=== PATIENT | male | born 1950 | race Caucasian/White ===

== ENCOUNTER 2021-12-07 12:41 | Observation (INO) ==
[2021-12-07 13:38] LABS: Basophils # (auto) 0.02 K/uL (0-0.2); Basophils % (auto) 0.2 %; Eosinophils # (auto) 0.08 K/uL (0-0.50); Eosinophils % (auto) 0.9 %; Hematocrit (blood only) 45.6 % (40.1-51.0); Immature Granulocytes # (auto) 0.05 K/uL (0.00-0.02); Immature Granulocytes % (auto) 0.6 %; Lymphocytes # (auto) 1.16 K/uL (1.2-3.4); Lymphocytes % (auto) 13.6 %; Mean Corpuscular Hemoglobin 30.8 pg (25.0-34.0); Mean Corpuscular Hgb Conc 35.1 g/dL (32.0-36.0); Mean Corpuscular Volume 87.7 fL (80.0-100.0); Mean Platelet Volume 9.7 fL (9.4-12.4); Monocytes # (auto) 0.37 K/uL (0.24-0.82); Monocytes % (auto) 4.3 %; Neutrophils # (auto) 6.83 K/uL (1.4-6.5); Neutrophils % (auto) 80.4 %; Platelet Count 223 K/uL (130-400); RDW Standard Deviation 45.1 fL (36.4-46.3); White Blood Count 8.51 K/ul (4.8-10.8)
[2021-12-07 14:10] LABS: Alanine Aminotransferase 61 U/L (7-52); Albumin Globulin Ratio 1.7 (0.9-2); Albumin Level 4.5 gm/dl (3.4-5.0); Alkaline Phosphatase 76 U/L (34-104); Anion Gap 7 (3-11); Aspartate Aminotransferase 51 U/L (13-39); BUN Creatinine Ratio 20.4 (10-20); Bilirubin,Total 0.6 mg/dl (0.2-1.0); Blood Urea Nitrogen 23 mg/dl (6-23); Calcium 9.5 mg/dl (8.5-10.1); Carbon Dioxide 25 mmol/L (21-32); Chloride 107 mmol/L (98-107); Est GFR (African American) 74.3 ml/min; Est GFR (Non-African American) 64.1 ml/min; Globulin 2.7 gm/dl (2.5-4.0); Glucose 121 mg/dl (70-99(Fasting)); Potassium 4.1 mmol/L (3.5-5.1); Sodium 139 mmol/L (136-145); Total Protein 7.2 gm/dl (6.0-8.3)
[2021-12-07 14:11] LABS: Troponin I High Sensitivity 38.2 pg/ml (0-20)
--- NOTE | 2021-12-07 14:57 | Electrocardiogram Report ---
Test Reason : Blood Pressure : / mmHG Vent. Rate : 053 BPM Atrial Rate : 053 BPM P-R Int : 150 ms QRS Dur : 086 ms QT Int : 430 ms P-R-T Axes : 042 -07 018 degrees QTc Int : 403 ms Poor data quality, interpretation may be adversely affected Sinus bradycardia with occasional Premature ventricular complexes Possible Old Septal infarct Abnormal ECG No previous ECGs available Confirmed by Edgar Keita ([id number]) on 12/07/2021 2:56:49 PM Referred By: Confirmed By:Edgar Keita
[2021-12-07] MEDS ORDERED: LORazepam 2 MG/2 ML SYR IV STA (15:39)
[2021-12-07] MEDS ORDERED: SODIUM CHLORIDE 0.9% 1000ML 500 ML IV ONE (15:40)
--- NOTE | 2021-12-07 15:45 | Emergency Department Note ---
Impression & Plan Elevated troponin ADMIT ED Provider Note HPI: The patient is a 71-year-old gentleman with history of anxiety, presents the emergency department with a chief complaint of acute onset headache, epigastric pain, and hypertension. Patient states that he was driving home from a meeting earlier today when he had an acute onset posterior headache, states it was relatively severe at the time, states he also had an acute episode of epigastric pain that was relatively sharp in nature. Patient states that the symptoms did gradually subside. He went to an urgent care for the symptoms initially and was noted to have an elevated blood pressure and was sent to the emergency room via EMS for further assessment. On arrival here to the ED the patient's blood pressure is 129/64, heart rate is in the 50s, patient is alert and saturating well on room air. Patient states that his symptoms are largely improved on my initial assessment, he arrives without focal deficits, denies any chest pain, denies any current abdominal pain ROS: -Neuro: Acute onset headache -GI: Transient abdominal discomfort *10 point review systems was conducted and is otherwise negative unless stated above *Outpatient medications and allergy history reviewed PE: General: Alert HEENT: Normocephalic, trachea midline Eyes: Extraocular eye movement is intact, no scleral erythema Pulmonary: Clear to auscultation bilaterally, no wheezing Cardio: Regular rate and rhythm GI: Abdomen is soft, nontender : No suprapubic tenderness MSK: No evidence of trauma or malformation of the extremities, no edema Skin: No evidence of rash Neuro: Alert, no focal deficits, equal bilateral director of labor and delivery strength, no drift of the upper extremities or lower extremities with testing against gravity, there is no ataxia on [id number] testing bilaterally, symmetrical facial movements are appreciated Psychiatric: Cooperative front desk monitor: - An order was placed for continuous cardiac monitoring - Patient was noted to be in sinus rhythm with a rate of 80 EKG: Rate: 53 Rhythm: Sinus bradycardia with occasional PVCs Intervals: Within normal limits ST changes: No ST elevation Time: 1315 EKG #2: Rate: 52 Rhythm: Sinus bradycardia Intervals: Within normal limits ST changes: No ST elevation Time: 1309 Interventions provided in ED: -IV Ativan Medical Decision Making: Patient presented to the emergency department after an acute onset headache with an episode of hypertension that was noted at the urgent care facility, states he also had an acute episode of epigastric pain but on arrival here to the ED his blood pressure is under better control at 126 systolic and he states that his symptoms are improved. Given the history, I did discuss with the patient CT imaging as well as review of lab work. CT imaging of the head with angiography was obtained given the acuity of the patient's headache, this was within a 6-hour window and does not show any evidence of subarachnoid hemorrhage or acute intracranial abnormalities. Patient denies any recent fevers, this was a transient headache and was acute in onset, low suspicion for meningitis or infectious etiology. CT angiography of the chest was obtained that shows no evidence of pulmonary embolism, CT imaging of the abdomen and pelvis does not show any evidence of acute surgical pathology as the potential source for his acute epigastric pain. EKG was obtained shortly after arrival and does not show any acute ischemic changes. Patient's high-sensitivity troponin level was mildly elevated at 38.2. He currently denies any chest pain. Patient was given a dose of IV Ativan shortly after arrival as he stated he was feeling very anxious, on my reassessment his blood pressure has up trended somewhat but not within critical limits. Repeat troponin was obtained and is significantly more elevated now at 120, patient continues to deny any symptoms but given his hypertension reported earlier today with his acute episode of epigastric pain I do feel that he needs to be admitted. Patient was initially hesitant at this idea however he was eventually in agreement. He does not believe he has had any recent stress testing. He is currently asymptomatic from the standpoint of having any chest pain, I discussed the above findings with the admitting hospitalist for [facility], Dr. Restrepo, who was in agreement to admit the patient to a telemetry bed for further management and cardiology consultation. We will hold on heparin drip at this time given that the patient is not symptomatic. Patient and his at the bedside are in agreement to the above plan the patient was admitted in stable condition for further care. Of note, aspirin was withheld secondary to allergy. Diagnosis: 1. Elevated troponin 2. Acute onset headache, not intractable 3. Acute epigastric pain, transient 4. Hypertension 5. Anxiety, acute Disposition: Admission Ishaan Wilkes DO Emergency Medicine Past Med/Surg History Medical History Asthma Atherosclerosis of aortic arch Gallstones GI bleed due to NSAIDs History of tobacco use Surgical History H/O resection of small bowel S/P rotator cuff repair Family History Other Heart disease Hypertension Social History Smoking Status: Former smoker Tobacco Type: Cigarettes Cigarettes Per Day: H/o 1.5 ppd for 22 years; Second Hand Exposure: No; Do You Dip or Chew Tobacco: No; Tobacco Cessation Education Requested by Patient: No Hx Alcohol Use: Yes Alcohol type: wine Hx Substance Use: Yes Prescribed Medications: Marijuana Last Used Substance: Days (ago) Substance Use Type Other:: with prescription Preferred Language: Kosovan Communication Ability: Effective Caustic Operator Required: No Beliefs That Will Affect Care: None Current Living Situation: Spouse Other Information That Helps Us Care for You: No Feels Safe at Home: Yes Safety Concerns: Feels Safe At This Time Assistive Devices: Hearing Aid - Left and Hearing Aid - Right Allergies Allergies Allergy/AdvReac Type Severity Reaction Status Date / Time pollen extracts Allergy Intermediate ITCHY Verified 12/07/21 17:04 EYES, SNEEZING NSAIDS (Non-Steroidal AdvReac Severe BLEEDING Verified 12/07/21 17:04 Anti-Inflamma COLITIS Home Meds Home Medications Medication Instructions Recorded Confirmed Medical Marijuana 1 dose inhalation DAILY 12/07/21 12/07/21 albuterol sulfate 2.5 mg/3 mL 2.5 mg inhalation Q4H PRN Wheezing 12/07/21 12/07/21 (0.083 %) solution for nebulization albuterol sulfate 90 mcg/actuation 2 puff inhalation BID 12/07/21 12/07/21 aerosol inhaler alprazolam 0.5 mg tablet (Xanax) 0.5 mg PO DAILY PRN Anxiety 12/07/21 12/07/21 biotin 5 mg tablet 5 mg PO DAILY 12/07/21 12/07/21 budesonide-formoterol HFA 160 2 puff inhalation BID 12/07/21 12/07/21 mcg-4.5 mcg/actuation aerosol inhaler (Symbicort) lycopene 10 mg capsule 10 mg PO DAILY 12/07/21 12/07/21 lysine 1,000 mg tablet 1,000 mg PO DAILY 12/07/21 12/07/21 benji extract 500 mg capsule 500 mg PO DIRECTED 12/07/21 12/07/21 nitroglycerin 0.4 mg sublingual 0.4 mg sublingual DIRECTED PRN 12/07/21 12/07/21 tablet (Nitrostat) Chest Pain prasterone (dhea) 50 mg capsule 50 mg PO DAILY 12/07/21 12/07/21 (DHEA) prednisone 20 mg tablet 20 mg PO DAILY PRN RESCUE KIT 12/07/21 12/07/21 simvastatin 10 mg tablet 10 mg PO HS 12/07/21 12/07/21 sodium chloride 0.65 % nasal spray 2 spray intranasal QID PRN NASAL 12/07/21 12/07/21 aerosol (Saline Nasal) DRYNESS yohimbe bark 500 mg capsule 0 mg PO DIRECTED 12/07/21 12/07/21 zolpidem 10 mg tablet (Ambien) 10 mg PO HS PRN Sleep 12/07/21 12/07/21 Results & Data (ED) Vital Signs Vital Signs - 24 hr 12/07/21 12:51 12/07/21 19:20 12/07/21 19:05 Temperature 36.8 C Temperature Source Temporal Artery Scan Pulse Rate 58 L Pulse Rate [Apical] 52 L Pulse Rate from SpO2 Sensor Respiratory Rate 16 12 Respiratory Effort / Characteristics Non-Labored Spontaneous Respiratory Depth Normal Blood Pressure 129/64 152/94 H Blood Pressure [Right Arm] 152/94 H Blood Pressure Mean 85 113 Blood Pressure Mean [Right Arm] 113 Blood Pressure Position Sitting Pulse Oximetry 97 98 Oxygen Delivery Method Room Air Sepsis Recent Fever Within 48 Hours No Sepsis New/Unexplained Change in Mental Status No Sepsis Action Taken by Nursing No Action Required 12/07/21 19:05 12/07/21 19:10 12/07/21 19:20 Temperature Temperature Source Pulse Rate 48 L 54 L 49 L Pulse Rate [Apical] Pulse Rate from SpO2 Sensor 49 L 54 L 50 L Respiratory Rate 13 18 16 Respiratory Effort / Characteristics Respiratory Depth Blood Pressure Blood Pressure [Right Arm] Blood Pressure Mean Blood Pressure Mean [Right Arm] Blood Pressure Position Pulse Oximetry 98 98 97 Oxygen Delivery Method Sepsis Recent Fever Within 48 Hours Sepsis New/Unexplained Change in Mental Status Sepsis Action Taken by Nursing 12/07/21 19:30 12/07/21 19:30 12/07/21 19:40 Temperature Temperature Source Pulse Rate 51 L 50 L Pulse Rate [Apical] Pulse Rate from SpO2 Sensor 51 L 51 L Respiratory Rate 12 19 Respiratory Effort / Characteristics Respiratory Depth Blood Pressure 162/95 H Blood Pressure [Right Arm] Blood Pressure Mean 117 Blood Pressure Mean [Right Arm] Blood Pressure Position Pulse Oximetry 98 96 Oxygen Delivery Method Sepsis Recent Fever Within 48 Hours Sepsis New/Unexplained Change in Mental Status Sepsis Action Taken by Nursing 12/07/21 19:50 12/07/21 20:00 12/07/21 20:00 Temperature Temperature Source Pulse Rate 50 L 48 L Pulse Rate [Apical] Pulse Rate from SpO2 Sensor 51 L 49 L Respiratory Rate 19 15 Respiratory Effort / Characteristics Respiratory Depth Blood Pressure 176/94 H Blood Pressure [Right Arm] Blood Pressure Mean 121 Blood Pressure Mean [Right Arm] Blood Pressure Position Pulse Oximetry 95 97 Oxygen Delivery Method Sepsis Recent Fever Within 48 Hours Sepsis New/Unexplained Change in Mental Status Sepsis Action Taken by Nursing 12/07/21 20:10 12/07/21 20:30 12/07/21 20:30 Temperature Temperature Source Pulse Rate 55 L 51 L Pulse Rate [Apical] Pulse Rate from SpO2 Sensor 54 L 50 L Respiratory Rate 14 11 L Respiratory Effort / Characteristics Respiratory Depth Blood Pressure 168/94 H Blood Pressure [Right Arm] Blood Pressure Mean 118 Blood Pressure Mean [Right Arm] Blood Pressure Position Pulse Oximetry 96 98 Oxygen Delivery Method Sepsis Recent Fever Within 48 Hours Sepsis New/Unexplained Change in Mental Status Sepsis Action Taken by Nursing Laboratory Data Result diagrams: 12/07/21 13:30 12/07/21 13:30 Lab Results 12/07/21 12/07/21 12/07/21 Range/Units 13:30 13:30 13:30 WBC 8.51 (4.8-10.8) K/ul RBC 5.20 (4.63-6.08) M/uL Hgb 16.0 (14.0-18.0) g/dl Hct 45.6 (40.1-51.0) % MCV 87.7 (80.0-100.0) fL MCH 30.8 (25.0-34.0) pg MCHC 35.1 (32.0-36.0) g/dL RDW Std Deviation 45.1 (36.4-46.3) fL RDW Coeff of Celena 14.0 (11.5-14.5) % Plt Count 223 (130-400) K/uL MPV 9.7 (9.4-12.4) fL Immature Gran % (Auto) 0.6 % Neut % (Auto) 80.4 % Lymph % (Auto) 13.6 % Swift % (Auto) 4.3 % Eos % (Auto) 0.9 % Baso % (Auto) 0.2 % Neut # (Auto) 6.83 H (1.4-6.5) K/uL Lymph # (Auto) 1.16 L (1.2-3.4) K/uL Swift # (Auto) 0.37 (0.24-0.82) K/uL Eos # (Auto) 0.08 (0-0.50) K/uL Baso # (Auto) 0.02 (0-0.2) K/uL Immature Gran # (Auto) 0.05 H (0.00-0.02) K/uL PT Cancelled INR Cancelled APTT Cancelled PTT Ratio Cancelled Sodium 139 (136-145) mmol/L Potassium 4.1 (3.5-5.1) mmol/L Chloride 107 (98-107) mmol/L Carbon Dioxide 25 (21-32) mmol/L Anion Gap 7 (3-11) BUN 23 (6-23) mg/dl Creatinine 1.13 (0.6-1.4) mg/dl Est Cr Clr Drug Dosing Not Reportable Est GFR ( Amer) 74.3 ml/min Est GFR (Non-Af Amer) 64.1 ml/min BUN/Creatinine Ratio 20.4 H (10-20) Glucose 121 H (70-99(Fasting)) mg/dl Calcium 9.5 (8.5-10.1) mg/dl Total Bilirubin 0.6 (0.2-1.0) mg/dl AST 51 H (13-39) U/L ALT 61 H (7-52) U/L Alkaline Phosphatase 76 (34-104) U/L Troponin I High Sens 38.2 H (0-20) pg/ml Total Protein 7.2 (6.0-8.3) gm/dl Albumin 4.5 (3.4-5.0) gm/dl Globulin 2.7 (2.5-4.0) gm/dl Albumin/Globulin Ratio 1.7 (0.9-2) Lipase (11-82) U/L SARS-CoV-2, RNA, NAAT (NEGATIVE) 12/07/21 12/07/21 12/07/21 Range/Units 15:44 17:35 17:35 WBC (4.8-10.8) K/ul RBC (4.63-6.08) M/uL Hgb (14.0-18.0) g/dl Hct (40.1-51.0) % MCV (80.0-100.0) fL MCH (25.0-34.0) pg MCHC (32.0-36.0) g/dL RDW Std Deviation (36.4-46.3) fL RDW Coeff of Celena (11.5-14.5) % Plt Count (130-400) K/uL MPV (9.4-12.4) fL Immature Gran % (Auto) % Neut % (Auto) % Lymph % (Auto) % Swift % (Auto) % Eos % (Auto) % Baso % (Auto) % Neut # (Auto) (1.4-6.5) K/uL Lymph # (Auto) (1.2-3.4) K/uL Swift # (Auto) (0.24-0.82) K/uL Eos # (Auto) (0-0.50) K/uL Baso # (Auto) (0-0.2) K/uL Immature Gran # (Auto) (0.00-0.02) K/uL PT 11.3 INR 1.1 APTT 25.5 PTT Ratio 0.9 Sodium (136-145) mmol/L Potassium (3.5-5.1) mmol/L Chloride (98-107) mmol/L Carbon Dioxide (21-32) mmol/L Anion Gap (3-11) BUN (6-23) mg/dl Creatinine (0.6-1.4) mg/dl Est Cr Clr Drug Dosing Est GFR ( Amer) ml/min Est GFR (Non-Af Amer) ml/min BUN/Creatinine Ratio (10-20) Glucose (70-99(Fasting)) mg/dl Calcium (8.5-10.1) mg/dl Total Bilirubin (0.2-1.0) mg/dl AST (13-39) U/L ALT (7-52) U/L Alkaline Phosphatase (34-104) U/L Troponin I High Sens 120.7 H* D (0-20) pg/ml Total Protein (6.0-8.3) gm/dl Albumin (3.4-5.0) gm/dl Globulin (2.5-4.0) gm/dl Albumin/Globulin Ratio (0.9-2) Lipase 56 (11-82) U/L SARS-CoV-2, RNA, NAAT (NEGATIVE) 12/07/21 Range/Units 19:24 WBC (4.8-10.8) K/ul RBC (4.63-6.08) M/uL Hgb (14.0-18.0) g/dl Hct (40.1-51.0) % MCV (80.0-100.0) fL MCH (25.0-34.0) pg MCHC (32.0-36.0) g/dL RDW Std Deviation (36.4-46.3) fL RDW Coeff of Celena (11.5-14.5) % Plt Count (130-400) K/uL MPV (9.4-12.4) fL Immature Gran % (Auto) % Neut % (Auto) % Lymph % (Auto) % Swift % (Auto) % Eos % (Auto) % Baso % (Auto) % Neut # (Auto) (1.4-6.5) K/uL Lymph # (Auto) (1.2-3.4) K/uL Swift # (Auto) (0.24-0.82) K/uL Eos # (Auto) (0-0.50) K/uL Baso # (Auto) (0-0.2) K/uL Immature Gran # (Auto) (0.00-0.02) K/uL PT INR APTT PTT Ratio Sodium (136-145) mmol/L Potassium (3.5-5.1) mmol/L Chloride (98-107) mmol/L Carbon Dioxide (21-32) mmol/L Anion Gap (3-11) BUN (6-23) mg/dl Creatinine (0.6-1.4) mg/dl Est Cr Clr Drug Dosing Est GFR ( Amer) ml/min Est GFR (Non-Af Amer) ml/min BUN/Creatinine Ratio (10-20) Glucose (70-99(Fasting)) mg/dl Calcium (8.5-10.1) mg/dl Total Bilirubin (0.2-1.0) mg/dl AST (13-39) U/L ALT (7-52) U/L Alkaline Phosphatase (34-104) U/L Troponin I High Sens (0-20) pg/ml Total Protein (6.0-8.3) gm/dl Albumin (3.4-5.0) gm/dl Globulin (2.5-4.0) gm/dl Albumin/Globulin Ratio (0.9-2) Lipase (11-82) U/L SARS-CoV-2, RNA, NAAT NEGATIVE (NEGATIVE) Administered Medications Alprazolam (Alprazolam 0.5 Mg Tablet) 0.5 mg PO DAILY PRN PRN Reason: Anxiety Stop: 01/06/22 21:25 Last Admin: 12/07/21 22:47 Dose: 0.5 mg Documented By: PK Heparin Sodium (Porcine) (Heparin Sod 5,000 Unit/0.5 Ml Vial) 5,000 units SQ Q8 MARCIAL Stop: 01/06/22 21:59 Last Admin: 12/07/21 22:40 Dose: 5,000 units Documented By: PK Simvastatin (Simvastatin 10 Mg Tab) 10 mg PO HS MARCIAL Stop: 01/06/22 21:25 Last Admin: 12/07/21 22:40 Dose: 10 mg Documented By: PK Zolpidem Tartrate (Zolpidem Tartrate 10 Mg Tab) 10 mg PO HS PRN PRN Reason: Sleep Stop: 01/06/22 21:25 Last Admin: 12/07/21 22:47 Dose: 10 mg Documented By: PK Discontinued Medications Sodium Chloride (Nss 1000ml) 500 mls @ 999 mls/hr IV .Q31M ONE Stop: 12/07/21 16:10 Last Infusion: 12/07/21 17:44 Dose: 0 mls/hr Documented By: Admin: 12/07/21 16:29 Dose: 999 mls/hr Documented By: AM Ioversol (Optiray 320 500ml) 100 ml IV ONCE ONE Stop: 12/07/21 16:26 Last Admin: 12/07/21 16:26 Dose: 100 ml Documented By: KSF Lorazepam (Lorazepam 2 Mg/2 Ml Syr) 1 mg IV NOW STA; Protocol Stop: 12/07/21 15:40 Last Admin: 12/07/21 17:23 Dose: Not Given Documented By: AM Imaging Data Radiologist's Impression: Head CTA 12/07/21 15:39 CT ANGIOGRAM OF THE BRAIN COMBO CLINICAL HISTORY: Headache. COMPARISON STUDY: No priors. TECHNIQUE: Unenhanced axial CT scan of the brain is performed. Subsequently, following the IV administration of 100 cc of Optiray 320, CT angiogram of the brain was performed from the skull base to the vertex. Images are reviewed in the axial, sagittal, and coronal planes. 3-D MIPS images are created and assessed. IV contrast was administered without complication. A dose lowering technique was utilized adhering to the principles of ALARA. FINDINGS: Brain parenchyma: There is age-related involutional change noting minimal microangiopathic disease. There is no hemorrhage, mass effect, or evidence of acute territorial ischemia by CT criteria. There is no evidence of enhancing mass lesion on the angiogram phase images. No extra-axial fluid collection is seen. Espino-white matter differentiation is preserved. Ventricles, sulci, and cisterns: Prominent secondary to involutional change. CT angiogram of the brain: There is mild atherosclerotic calcification of the cavernous carotid arteries. The internal carotid arteries are widely patent, as are the anterior and middle cerebral arteries. The vertebrobasilar system and posterior cerebral arteries are widely patent. The vertebral arteries are codominant. There is no aneurysm, high-grade stenosis, or focal vessel cutoff identified throughout the intracranial circulation. Dural sinuses: Clear as visualized. Orbits: The bony orbits are intact. The orbital contents are normal as visualized noting bilateral ocular lens implants. Sinuses and mastoids: The visualized paranasal sinuses are clear. The mastoid air cells are well pneumatized. Calvarium: Unremarkable. IMPRESSION: 1. There is no hemorrhage, mass effect, or evidence of acute territorial ischemia by CT criteria. 2. Unremarkable CT angiogram of the brain. ACT 112: Negative or not required by law. Electronically signed by: Efe Haji M.D. 12/07/2021 4:38 PM Abdomen/Pelvis CT 12/07/21 15:40 CT SCAN OF THE ABDOMEN AND PELVIS WITH IV CONTRAST CLINICAL HISTORY: Acute onset abdominal pain. COMPARISON STUDY: No priors. TECHNIQUE: Following the IV administration of 100 cc of Optiray 320, CT scan of the abdomen and pelvis is performed from the lung bases to the proximal femora. Images are reviewed in the axial, sagittal, and coronal planes. IV contrast was administered without complication. A dose lowering technique was utilized adhering to the principles of ALARA. CT DOSE: 2337.85 mGy.cm FINDINGS: Lung bases: The heart is normal in size and without pericardial effusion. The l john bases are clear noting dependent scarring/atelectasis. A small hiatal hernia is noted. Liver: The contrast-enhanced liver is normal in size, contour, and attenuation. There is no intrahepatic biliary ductal dilatation. The hepatic veins and portal veins are patent. Gallbladder: There are calcified gallstones with no CT evidence of acute antonio cystitis. Spleen: Normal in size and attenuation. Pancreas: Unremarkable. Adrenal glands: Unremarkable. Kidneys: The contrast enhanced kidneys demonstrate mild cortical atrophy and are without hydronephrosis. The kidneys enhance symmetrically. A 2 cm cyst is seen on the right. Additional subcentimeter cortical hypodensities also likely represent cysts but are too small for definitive characterization. Abdominal vasculature: The abdominal aorta is normal in course and caliber noting mild atherosclerotic calcification. Bowel: There is postoperative change from rectosigmoid resection with colocolic anastomosis. No bowel obstruction is seen. There is moderate diverticulosis of the remaining colon without CT evidence of acute diverticulitis. There is mild colonic fecal retention. The appendix is well-visualized and normal. Peritoneum: There is no intraperitoneal free air or abdominal ascites. Lymphadenopathy: None. Pelvic viscera: The bladder is decompressed and appears markedly thick walled with mucosal hyperemia. There is surrounding infiltration. There is a tiny calcification within the bladder lumen or bladder wall seen on image #[id number]. The prostate gland is diminutive and heterogeneous. There are bilateral fat- containing inguinal hernias. Skeletal structures: The skeletal structures are osteopenic. There is lumbosacral spondylosis with evidence of L4-L5 spinal fusion. No lytic or blastic lesions are seen. IMPRESSION: 1. Question cystitis. Correlate with clinical findings and urinalysis. 2. Cholelithiasis without CT evidence of acute cholecystitis. 3. Colonic diverticulosis without CT evidence of acute diverticulitis. 4. Additional findings as above. ACT 112: Negative or not required by law. Electronically signed by: Efe Haji M.D. 12/07/2021 4:45 PM Chest CTA 12/07/21 15:40 CHEST CTA for PULMONARY ARTERIES CT DOSE: HISTORY: Upper chest pain. Assess for pulmonary embolus. TECHNIQUE: Multiaxial CT images of the chest were performed following the intravenous administration of contrast to evaluate the pulmonary arteries. Maximal intensity projection images were also obtained. A dose lowering technique was utilized adhering to the principles of ALARA. COMPARISON STUDY: None. FINDINGS: Normal caliber thoracic aorta with no evidence for a dissection. The heart is normal in size. No pleural or pericardial effusions. Mild circumferential thickening of the distal esophagus. Retrograde opacification of the hepatic veins. Cholelithiasis is noted. This is better appreciated on the same day abdomen and pelvis CT. No mediastinal or hilar lymphadenopathy. The thyroid gland enhances normally. No filling defects within the pulmonary arteries to suggest a pulmonary embolus. No fractures within the visualized osseous structures. No pneumothorax. The central airways are patent. Small groundglass densities within the lower lobes posteriorly favor mild dependent change. There is also mild interstitial thickening within the lungs which is likely chronic. No evidence for pulmonary edema. No focal lung consolidations to suggest pneumonia. Mild central bronchial wall thickening. IMPRESSION: 1. No evidence for a pulmonary embolus. 2. Mild chronic interstitial thickening mild central bronchial wall thickening. No focal lung consolidations to suggest a pneumonia. . 3. Cholelithiasis. ACT 112: Negative or not required by law. Electronically signed by: Barry Garza M.D. 12/07/2021 4:45 PM Discharge Plan Visit Data Chief Complaint: Hypertension ED Provider: Ishaan Wilkes Discharge Problem: Elevated troponin Patient Disposition: Admitted As Inpatient Discharge Instructions Interventions: ED Discharge Assessment Last Done: 12/07/21 21:02
[2021-12-07 16:07] LABS: INR 1.1 (0.9-1.1); Partial Thromboplastin Ratio 0.9; Partial Thromboplastin Time 25.5 Seconds (21.0-31.0); Prothrombin Time 11.3 Seconds (9.0-12.0)
[2021-12-07] MEDS ORDERED: OPTIRAY 320 500ml IV ONE (16:25)
--- NOTE | 2021-12-07 16:39 | CT Scan Report ---
CT ANGIOGRAM OF THE BRAIN COMBO CLINICAL HISTORY: Headache. COMPARISON STUDY: No priors. TECHNIQUE: Unenhanced axial CT scan of the brain is performed. Subsequently, following the IV adminis tration of 100 cc of Optiray 320, CT angiogram of the brain was performed from the skull base to the vertex. Images are reviewed in the axial, sagittal, and coronal planes. 3-D MIPS images are created a nd assessed. IV contrast was administered without complication. A dose lowering technique was utiliz ed adhering to the principles of ALARA. FINDINGS: Brain parenchyma: There is age-related involutional change noting minimal microangiopathic disease. T here is no hemorrhage, mass effect, or evidence of acute territorial ischemia by CT criteria. There i s no evidence of enhancing mass lesion on the angiogram phase images. No extra-axial fluid collection is seen. Espino-white matter differentiation is preserved. Ventricles, sulci, and cisterns: Prominent secondary to involutional change. CT angiogram of the brain: There is mild atherosclerotic calcification of the cavernous carotid arter ies. The internal carotid arteries are widely patent, as are the anterior and middle cerebral arterie s. The vertebrobasilar system and posterior cerebral arteries are widely patent. The vertebral arteri es are codominant. There is no aneurysm, high-grade stenosis, or focal vessel cutoff identified throu ghout the intracranial circulation. Dural sinuses: Clear as visualized. Orbits: The bony orbits are intact. The orbital contents are normal as visualized noting bilateral oc ular lens implants. Sinuses and mastoids: The visualized paranasal sinuses are clear. The mastoid air cells are well pneu matized. Calvarium: Unremarkable. IMPRESSION: 1. There is no hemorrhage, mass effect, or evidence of acute territorial ischemia by CT criteria. 2. Unremarkable CT angiogram of the brain. ACT 112: Negative or not required by law. Electronically signed by: Efe Haji M.D. 12/07/2021 4:38 PM
--- NOTE | 2021-12-07 16:46 | CT Scan Report ---
CT SCAN OF THE ABDOMEN AND PELVIS WITH IV CONTRAST CLINICAL HISTORY: Acute onset abdominal pain. COMPARISON STUDY: No priors. TECHNIQUE: Following the IV administration of 100 cc of Optiray 320, CT scan of the abdomen and pelv is is performed from the lung bases to the proximal femora. Images are reviewed in the axial, sagitta l, and coronal planes. IV contrast was administered without complication. A dose lowering technique w as utilized adhering to the principles of ALARA. CT DOSE: 2337.85 mGy.cm FINDINGS: Lung bases: The heart is normal in size and without pericardial effusion. The lung bases are clear no ting dependent scarring/atelectasis. A small hiatal hernia is noted. Liver: The contrast-enhanced liver is normal in size, contour, and attenuation. There is no intrahepa tic biliary ductal dilatation. The hepatic veins and portal veins are patent. Gallbladder: There are calcified gallstones with no CT evidence of acute cholecystitis. Spleen: Normal in size and attenuation. Pancreas: Unremarkable. Adrenal glands: Unremarkable. Kidneys: The contrast enhanced kidneys demonstrate mild cortical atrophy and are without hydronephros is. The kidneys enhance symmetrically. A 2 cm cyst is seen on the right. Additional subcentimeter cor tical hypodensities also likely represent cysts but are too small for definitive characterization. Abdominal vasculature: The abdominal aorta is normal in course and caliber noting mild atheroscleroti c calcification. Bowel: There is postoperative change from rectosigmoid resection with colocolic anastomosis. No bowel obstruction is seen. There is moderate diverticulosis of the remaining colon without CT evidence of acute diverticulitis. There is mild colonic fecal retention. The appendix is well-visualized and nor mal. Peritoneum: There is no intraperitoneal free air or abdominal ascites. Lymphadenopathy: None. Pelvic viscera: The bladder is decompressed and appears markedly thick walled with mucosal hyperemia. There is surrounding infiltration. There is a tiny calcification within the bladder lumen or bladder wall seen on image #[id number]. The prostate gland is diminutive and heterogeneous. There are bilateral fat -containing inguinal hernias. Skeletal structures: The skeletal structures are osteopenic. There is lumbosacral spondylosis with ev idence of L4-L5 spinal fusion. No lytic or blastic lesions are seen. IMPRESSION: 1. Question cystitis. Correlate with clinical findings and urinalysis. 2. Cholelithiasis without CT evidence of acute cholecystitis. 3. Colonic diverticulosis without CT evidence of acute diverticulitis. 4. Additional findings as above. ACT 112: Negative or not required by law. Electronically signed by: Efe Haji M.D. 12/07/2021 4:45 PM
--- NOTE | 2021-12-07 16:46 | CT Scan Report ---
CHEST CTA for PULMONARY ARTERIES CT DOSE: HISTORY: Upper chest pain. Assess for pulmonary embolus. TECHNIQUE: Multiaxial CT images of the chest were performed following the intravenous administration of contrast to evaluate the pulmonary arteries. Maximal intensity projection images were also obtaine d. A dose lowering technique was utilized adhering to the principles of ALARA. COMPARISON STUDY: None. FINDINGS: Normal caliber thoracic aorta with no evidence for a dissection. The heart is normal in siz e. No pleural or pericardial effusions. Mild circumferential thickening of the distal esophagus. Retr ograde opacification of the hepatic veins. Cholelithiasis is noted. This is better appreciated on the same day abdomen and pelvis CT. No mediastinal or hilar lymphadenopathy. The thyroid gland enhances normally. No filling defects within the pulmonary arteries to suggest a pulmonary embolus. No fractur es within the visualized osseous structures. No pneumothorax. The central airways are patent. Small g roundglass densities within the lower lobes posteriorly favor mild dependent change. There is also mi ld interstitial thickening within the lungs which is likely chronic. No evidence for pulmonary edema. No focal lung consolidations to suggest pneumonia. Mild central bronchial wall thickening. IMPRESSION: 1. No evidence for a pulmonary embolus. 2. Mild chronic interstitial thickening mild central bronchial wall thickening. No focal lung consoli dations to suggest a pneumonia. . 3. Cholelithiasis. ACT 112: Negative or not required by law. Electronically signed by: Barry Garza M.D. 12/07/2021 4:45 PM
--- NOTE | 2021-12-07 20:20 | History & Physical Report ---
Date of Service December 07, 2021 Assessment & Plan (1) Hypertensive urgency: (2) Elevated troponin: (3) Epigastric pain: (4) Gallstones: (5) GI bleed due to NSAIDs: (6) Asthma: Plan This is a 71-year-old male with PMH of asthma, chronic back pain with neuropathy, daily marijuana use, atherosclerosis of aortic arch and other medical problems listed below and other medical problems listed below who presents to the ED from [facility] with chest pain and elevated blood pres sure. Hypertensive urgency Elevated troponin level History of elevated BPs per chart, BP was 200/100 at urgent care today [employer]. Improved to 160/90 after ntg CP has resolved, HS troponin 38 -> 120. Continue trending overnight EKG with sinus bradycardia, e/o previous septal infarct 2D echo, telemetry, routine cardiology consult Vasotec PRN for SBP >165 Lower chest/Epigastric pain Epigastric pain improved to a 1/10 in epigastrium. No evidence of dissection or PE on chest CTA. Evidence of cholelithiasis but no cholecystitis on CT abd/pel vis. Lipase pending Asthma Stable. Continue home Symbicort, albuterol inhalers DVT Ppx: SQ heparin Code status: FULL PCP: Santos Dispo: Admitted to PCU Patient seen in collaboration with Dr. Restrepo. Please see addendum. History of Present Illness Chief Complaint: chest pain Primary Care Provider: DANY PCP This is a 71-year-old male with PMH of asthma, chronic back pain with neuropathy, daily marijuana use, atherosclerosis of aortic arch and other medical problems listed below and other medical problems listed below who presents to the ED from [facility] with chest pain and elevated blood pressure. Pain started around 11 AM today following meeting with his manager net regarding dispute with neighbor. Was admittedly feeling worked up and anxious at this time and describes sudden onset pain in lower chest/epigastric area that was a 9/10 sharp and constant pain that is nonradiating with associated diaphoresis, severe headache and nausea. No dizziness, SOB. No near syncope. Per chart review, states that patient has had untreated hypertension with systolic blood pressure over 200 intermittently for at least 3-6 months. Patient states he does not believe he needs medications because when he is able to relax and do mindfulness exercises, his blood pressure returns to a normal range. Does have home BP cuffs. Was given nitro and 324 mg aspirin at convenient care and was brought to ED via EMS for further evaluation. In ED, the patient's blood pressure improved to 129/64, heart rate is in the 50s, patient is alert and saturating well on room air.Chest pain and headache resolved after ntg. Abdominal discomfort in lower epigastrium present but mild 2/10 compared to initial pain. EKG with sinus bradycardia and evidence of previous septal infarct. Has not smoked a cigar in over 6 months. Daily marijuana use for neuropathic chronic back pain. No fever, chills, lightheadedness, N/V, dysuria, diarrhea or constipation. States over the past few months he does have episodes of left sided chest pain that radiates up to jaw but they resolve on their own. Denies episode similar to that today as this was lower chest/epigastric area. Allergies Allergy/AdvReac Type Severity Reaction Status Date / Time pollen extracts Allergy Intermediate ITCHY Verified 12/07/21 17:04 EYES, SNEEZING NSAIDS (Non-Steroidal AdvReac Severe BLEEDING Verified 12/07/21 17:04 Anti-Inflamma COLITIS Home Medications Medication Instructions Recorded Confirmed Type Medical Marijuana 1 dose inhalation DAILY 12/07/21 12/07/21 History albuterol sulfate 2.5 mg/3 mL 2.5 mg inhalation Q4H PRN Wheezing 12/07/21 12/07/21 History (0.083 %) solution for nebulization albuterol sulfate 90 mcg/actuation 2 puff inhalation BID 12/07/21 12/07/21 History aerosol inhaler alprazolam 0.5 mg tablet (Xanax) 0.5 mg PO DAILY PRN Anxiety 12/07/21 12/07/21 History biotin 5 mg tablet 5 mg PO DAILY 12/07/21 12/07/21 History budesonide-formoterol HFA 160 2 puff inhalation BID 12/07/21 12/07/21 History mcg-4.5 mcg/actuation aerosol inhaler (Symbicort) lycopene 10 mg capsule 10 mg PO DAILY 12/07/21 12/07/21 History lysine 1,000 mg tablet 1,000 mg PO DAILY 12/07/21 12/07/21 History benji extract 500 mg capsule 500 mg PO DIRECTED 12/07/21 12/07/21 History nitroglycerin 0.4 mg sublingual 0.4 mg sublingual DIRECTED PRN 12/07/21 12/07/21 History tablet (Nitrostat) Chest Pain prasterone (dhea) 50 mg capsule 50 mg PO DAILY 12/07/21 12/07/21 History (DHEA) prednisone 20 mg tablet 20 mg PO DAILY PRN RESCUE KIT 12/07/21 12/07/21 History simvastatin 10 mg tablet 10 mg PO HS 12/07/21 12/07/21 History sodium chloride 0.65 % nasal spray 2 spray intranasal QID PRN NASAL 12/07/21 12/07/21 History aerosol (Saline Nasal) DRYNESS yohimbe bark 500 mg capsule 0 mg PO DIRECTED 12/07/21 12/07/21 History zolpidem 10 mg tablet (Ambien) 10 mg PO HS PRN Sleep 12/07/21 12/07/21 History Past Med/Surg History Medical History Asthma Atherosclerosis of aortic arch Gallstones GI bleed due to NSAIDs History of tobacco use Surgical History H/O resection of small bowel S/P rotator cuff repair Family History Other Heart disease Hypertension Social History Smoking Status: Former smoker Tobacco Type: Cigarettes Cigarettes Per Day: H/o 1.5 ppd for 22 years; Second Hand Exposure: No; Do You Dip or Chew Tobacco: No; Tobacco Cessation Education Requested by Patient: No Hx Alcohol Use: Yes Alcohol type: wine Hx Substance Use: Yes Prescribed Medications: Marijuana Last Used Substance: Days (ago) Substance Use Type Other:: with prescription Preferred Language: Maldivian Communication Ability: Effective 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 Physical Exam Physical Exam: General Appearance: WD/WN, vitals as above, NAD, sitting up in bed, pleasant, conversing easily Head: normocephalic, atraumatic Eyes: normal inspection, PERRL, conjunctivae normal, anicteric sclerae ENT: external ear and nose normal, oropharynx normal Neck: normal visual inspection, trachea midline, no thyromegaly Respiratory: normal respiratory effort, lungs clear to auscultation, no wheeze, rales, rhonchi. No accessory muscle use Cardiovascular: bradycardia, regular rhythm, no murmur, normal peripheral pulses, no BLE edema. Vessels: no JVD Chest: normal inspection of chest Abdomen/GI: normal bowel sounds, soft, TTP across epigastrium, no guarding, no hepatosplenomegaly Extremities/Musculoskeletal: no cyanosis or clubbing, extremities motor strength 5/5 Neurologic: PERRL, EOMI, accommodation nl, no face palsy, no dysarthria, CN's II-XI intact bilaterally and moves all extremities Psychiatric: A+Ox3, euthymic affect Skin: no rashes, normal color, warm/dry Results & Data Results & Data ([facility]) Vital Signs (Past 12 Hours) Vital Signs Temp Pulse Pulse Resp BP BP Pulse Ox 12/07/21 20:10 55 L 14 96 12/07/21 20:00 48 L 15 97 12/07/21 20:00 176/94 H 12/07/21 19:50 50 L 19 95 12/07/21 19:40 50 L 19 96 12/07/21 19:30 51 L 12 98 12/07/21 19:30 162/95 H 12/07/21 19:20 49 L 16 97 12/07/21 19:10 54 L 18 98 12/07/21 19:05 48 L 13 98 12/07/21 19:05 152/94 H 12/07/21 19:20 52 L 12 152/94 H 98 12/07/21 12:51 36.8 C 58 L 16 129/64 97 O2 Del Method 12/07/21 20:10 12/07/21 20:00 12/07/21 20:00 12/07/21 19:50 12/07/21 19:40 12/07/21 19:30 12/07/21 19:30 12/07/21 19:20 12/07/21 19:10 12/07/21 19:05 12/07/21 19:05 12/07/21 19:20 12/07/21 12:51 Room Air Laboratory Results Short CBC 12/07/21 Range/Units 13:30 WBC 8.51 (4.8-10.8) K/ul Hgb 16.0 (14.0-18.0) g/dl Hct 45.6 (40.1-51.0) % Plt Count 223 (130-400) K/uL BMP 12/07/21 13:30 Sodium 139 Potassium 4.1 Chloride 107 Carbon Dioxide 25 BUN 23 Creatinine 1.13 Glucose 121 H Calcium 9.5 Liver Function 12/07/21 Range/Units 13:30 Total Bilirubin 0.6 (0.2-1.0) mg/dl AST 51 H (13-39) U/L ALT 61 H (7-52) U/L Alkaline Phosphatase 76 (34-104) U/L Albumin 4.5 (3.4-5.0) gm/dl Diagnostic Findings Head CTA 12/07/21 15:39 CT ANGIOGRAM OF THE BRAIN COMBO CLINICAL HISTORY: Headache. COMPARISON STUDY: No priors. TECHNIQUE: Unenhanced axial CT scan of the brain is performed. Subsequently, following the IV administration of 100 cc of Optiray 320, CT angiogram of the brain was performed from the skull base to the vertex. Images are reviewed in the axial, sagittal, and coronal planes. 3-D MIPS images are created and assessed. IV contrast was administered without complication. A dose lowering technique was utilized adhering to the principles of ALARA. FINDINGS: Brain parenchyma: There is age-related involutional change noting minimal microangiopathic disease. There is no hemorrhage, mass effect, or evidence of acute territorial ischemia by CT criteria. There is no evidence of enhancing mass lesion on the angiogram phase images. No extra-axial fluid collection is seen. Espino-white matter differentiation is preserved. Ventricles, sulci, and cisterns: Prominent secondary to involutional change. CT angiogram of the brain: There is mild atherosclerotic calcification of the cavernous carotid arteries. The internal carotid arteries are widely patent, as are the anterior and middle cerebral arteries. The vertebrobasilar system and posterior cerebral arteries are widely patent. The vertebral arteries are codominant. There is no aneurysm, high-grade stenosis, or focal vessel cutoff identified throughout the intracranial circulation. Dural sinuses: Clear as visualized. Orbits: The bony orbits are intact. The orbital contents are normal as visualized noting bilateral ocular lens implants. Sinuses and mastoids: The visualized paranasal sinuses are clear. The mastoid air cells are well pneumatized. Calvarium: Unremarkable. IMPRESSION: 1. There is no hemorrhage, mass effect, or evidence of acute territorial ischemia by CT criteria. 2. Unremarkable CT angiogram of the brain. ACT 112: Negative or not required by law. Electronically signed by: Efe Haji M.D. 12/07/2021 4:38 PM Abdomen/Pelvis CT 12/07/21 15:40 CT SCAN OF THE ABDOMEN AND PELVIS WITH IV CONTRAST CLINICAL HISTORY: Acute onset abdominal pain. COMPARISON STUDY: No priors. TECHNIQUE: Following the IV administration of 100 cc of Optiray 320, CT scan of the abdomen and pelvis is performed from the lung bases to the proximal femora. Images are reviewed in the axial, sagittal, and coronal planes. IV contrast was administered without complication. A dose lowering technique was utilized adher ing to the principles of ALARA. CT DOSE: 2337.85 mGy.cm FINDINGS: Lung bases: The heart is normal in size and without pericardial effusion. The lung bases are clear noting dependent scarring/atelectasis. A small hiatal hernia is noted. Liver: The contrast-enhanced liver is normal in size, contour, and attenuation. There is no intrahepatic biliary ductal dilatation. The hepatic veins and portal veins are patent. Gallbladder: There are calcified gallstones with no CT evidence of acute cholecystitis. Spleen: Normal in size and attenuation. Pancreas: Unremarkable. Adrenal glands: Unremarkable. Kidneys: The contrast enhanced kidneys demonstrate mild cortical atrophy and are without hydronephrosis. The kidneys enhance symmetrically. A 2 cm cyst is seen on the right. Additional subcentimeter cortical hypodensities also likely represent cysts but are too small for definitive characterization. Abdominal vasculature: The abdominal aorta is normal in course and caliber noting mild atherosclerotic calcification. Bowel: There is postoperative change from rectosigmoid resection with colocolic anastomosis. No bowel obstruction is seen. There is moderate diverticulosis of the remaining colon without CT evidence of acute diverticulitis. There is mild colonic fecal retention. The appendix is well-visualized and normal. Peritoneum: There is no intraperitoneal free air or abdominal ascites. Lymphadenopathy: None. Pelvic viscera: The bladder is decompressed and appears markedly thick walled with mucosal hyperemia. There is surrounding infiltration. There is a tiny calcification within the bladder lumen or bladder wall seen on image #[id number]. The prostate gland is diminutive and heterogeneous. There are bilateral fat- containing inguinal hernias. Skeletal structures: The skeletal structures are osteopenic. There is lumbosacral spondylosis with evidence of L4-L5 spinal fusion. No lytic or blastic lesions are seen. IMPRESSION: 1. Question cystitis. Correlate with clinical findings and urinalysis. 2. Cholelithiasis without CT evidence of acute cholecystitis. 3. Colonic diverticulosis without CT evidence of acute diverticulitis. 4. Additional findings as above. ACT 112: Negative or not required by law. Electronically signed by: Efe Haji M.D. 12/07/2021 4:45 PM Chest CTA 12/07/21 15:40 CHEST CTA for PULMONARY ARTERIES CT DOSE: HISTORY: Upper chest pain. Assess for pulmonary embolus. TECHNIQUE: Multiaxial CT images of the chest were performed following the intravenous administration of contrast to evaluate the pulmonary arteries. Maximal intensity projection images were also obtained. A dose lowering technique was utilized adhering to the principles of ALARA. COMPARISON STUDY: None. FINDINGS: Normal caliber thoracic aorta with no evidence for a dissection. The heart is normal in size. No pleural or pericardial effusions. Mild circumferential thickening of the distal esophagus. Retrograde opacification of the hepatic veins. Cholelithiasis is noted. This is better appreciated on the same day abdomen and pelvis CT. No mediastinal or hilar lymphadenopathy. The thyroid gland enhances normally. No filling defects within the pulmonary arteries to suggest a pulmonary embolus. No fractures within the visualized osseous structures. No pneumothorax. The central airways are patent. Small groundglass densities within the lower lobes posteriorly favor mild dependent change. There is also mild interstitial thickening within the lungs which is likely chronic. No evidence for pulmonary edema. No focal lung consolidations to suggest pneumonia. Mild central bronchial wall thickening. IMPRESSION: 1. No evidence for a pulmonary embolus. 2. Mild chronic interstitial thickening mild central bronchial wall thickening. No focal lung consolidations to suggest a pneumonia. . 3. Cholelithiasis. ACT 112: Negative or not required by law. Electronically signed by: Barry Garza M.D. 12/07/2021 4:45 PM ECG Additional Comments: EKG with sinus bradycardia and evidence of previous septal infarct. Supervising Physician Co-Signing Physician Notes Care coordinated with Vianey Barriga PA-C. Agree with above note. Patient seen and examined. Please refer to her notes for full details. Vital signs reviewed. Physical exam: General exam: Alert and oriented. Not in acute distress. CVS: S1 and S2 heard, regular rate and rhythm, no murmurs. RS: Clear to auscultation, no wheezing or crackles. ABD: Soft, bowel sounds present, nontender, no distention. BOX STAMPER: Nonfocal. EXT: No edema, no erythema. Labs: Reviewed. Assessment and plan: Presented with headache, epigastric pain and transient chest pain. Currently sleeping but easily arousable. Says all his symptoms resolved now. No chest pain or sob or abdominal pain or nausea now. Afebrile. Hemodynamics stable. Headache epigastric pain Chest pain cta head, CTA chest unremarkable Ct abd/pelvis gall stones, Possible cystitis but UA unremarkable Liver US. Gall stnes Mild elevation of troponin Monitoring in tele currently asymptomatic echo and cardio consult Other diagnosis and plan of care as per Vianey luu MD.
[2021-12-07] MEDS ORDERED: ENALAPRILAT 1.25 MG in DEXTROSE 5% 25 ML IV PRN (21:24)
[2021-12-07] MEDS ORDERED: NITROGLYCERIN SL 0.4 MG/TAB TAB SL PRN (21:26)
[2021-12-07] MEDS ORDERED: SIMVASTATIN 10 MG TAB PO SCH (21:26)
[2021-12-07] MEDS ORDERED: ALPRAZolam 0.5 MG TABLET PO PRN (21:26)
[2021-12-07] MEDS ORDERED: ALBUTEROL 0.083% NEBU SOLN 3 ML VIAL INH PRN (21:26)
[2021-12-07] MEDS ORDERED: ACETAMINOPHEN 325 MG TAB PO PRN (21:26)
[2021-12-07] MEDS ORDERED: ZOLPIDEM TARTRATE 10 MG TAB PO PRN (21:26)
[2021-12-07] MEDS ORDERED: ONDANSETRON INJ 2 MG/ML 2 ML VIAL IV PRN (21:26)
[2021-12-07] MEDS ORDERED: SODIUM CHLORIDE 0.65% NA SOLN 45 ML (OCEAN) NAE PRN (21:26)
[2021-12-07] MEDS ORDERED: POLYETHYLENE (MIRALAX) 17 GM PACK PO PRN (21:26)
[2021-12-07] MEDS: HEPARIN SOD 5,000 UNIT/0.5 ML VIAL SQ SCH (22:40)
[2021-12-08 05:27] LABS: Appearance Urine Clear (Clear); Bilirubin Urine Negative (Negative); Blood Urine Negative (Negative); Color Urine Yellow; Glucose Urine UA Trace (Negative); Ketones Urine Negative (Negative); Leukocyte Esterase Urine Negative (Negative); Nitrite Urine Negative (Negative); Protein Urine Negative (Negative); Specific Gravity Urine 1.022 (1.000-1.030); Urobilinogen Urine Negative (Negative)
[2021-12-08] MEDS: HEPARIN SOD 5,000 UNIT/0.5 ML VIAL SQ SCH ×2 (06:13→14:25)
[2021-12-08] MEDS ORDERED: ALBUTEROL HFA 8 GM INHALER INH SCH (07:00)
[2021-12-08 07:07] LABS: Hematocrit (blood only) 42.2 % (40.1-51.0); Hemoglobin 14.5 g/dl (14.0-18.0); Mean Corpuscular Hgb Conc 34.4 g/dL (32.0-36.0); Mean Corpuscular Volume 87.4 fL (80.0-100.0); Mean Platelet Volume 9.9 fL (9.4-12.4); Platelet Count 213 K/uL (130-400); RDW Coefficient of Variation 14.3 % (11.5-14.5); RDW Standard Deviation 45.5 fL (36.4-46.3); Red Blood Count 4.83 M/uL (4.63-6.08); White Blood Count 8.64 K/ul (4.8-10.8)
[2021-12-08 07:30] LABS: BUN Creatinine Ratio 17.5 (10-20); Calcium 8.9 mg/dl (8.5-10.1); Chol HDL Ratio 3.8 (0-5); Creatinine Clr Calc Pharmacy 57.7 ml/min; Est GFR (African American) 73.5 ml/min; Est GFR (Non-African American) 63.4 ml/min; Potassium 4.2 mmol/L (3.5-5.1)
[2021-12-08 08:12] LABS: Estimated Average Glucose 117 mg/dl; Hemoglobin A1C 5.7 % (4.5-5.6)
--- NOTE | 2021-12-08 08:58 | Electrocardiogram Report ---
Test Reason : Blood Pressure : / mmHG Vent. 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
--- NOTE | 2021-12-08 08:58 | Electrocardiogram Report ---
Test Reason : Blood Pressure : / mmHG Vent. 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
[2021-12-08] MEDS ORDERED: FLUTICASONE/VILANTEROL 100/25MCG 14 PUFFS/INHALER INH SCH (09:00)
[2021-12-08] MEDS ORDERED: ASPIRIN 81 MG ECTAB PO SCH (09:00)
--- NOTE | 2021-12-08 09:28 | Ultrasound Report ---
ULTRASOUND RIGHT UPPER QUADRANT ABDOMEN CLINICAL HISTORY: Epigastric abdominal pain. Elevated hepatic transaminases. COMPARISON STUDY: Abdominal CT dated 12/07/2021. TECHNIQUE: Real-time, grayscale, and color flow sonography of the right upper quadrant of the abdomen was performed. Images are reviewed in the transverse and longitudinal planes. FINDINGS: Liver: The liver is normal in size. Echotexture is heterogeneously increased. There is no intrahepati c biliary ductal dilatation. The main portal vein is patent. Gallbladder: There are shadowing calcified gallstones. There is no gallbladder wall thickening or per icholecystic fluid. A sonographic Weems's sign is reportedly absent. The common bile duct measures u p to 0.5 cm in diameter. Pancreas: Visualized portions of the pancreatic head and body are normal in appearance. Right kidney: Survey images of the right kidney demonstrate normal size and echotexture. There is no hydronephrosis. Ascites: None. IMPRESSION: 1. Cholelithiasis without sonographic evidence of acute cholecystitis. 2. Increased hepatic echotexture suggests steatosis. ACT 112: Negative or not required by law. Electronically signed by: Efe Haji M.D. 12/08/2021 9:26 AM
--- NOTE | 2021-12-08 09:53 | Cardiology Consultation ---
Date of Consultation December 08, 2021 Assessment & Plan (1) Epigastric pain: (2) Elevated troponin: - Patient has had a total of 3 EKG tracings all of which revealed sinus rhythm sinus bradycardia without significant ST changes. -High-sensitivity troponin had been 38 on presentation, and trended to 120, 93, and most recently 54. -Resting echocardiogram revealed normal LV wall motion. Moderate aortic valve sclerosis without stenosis, LVEF 55 to 60%, mild MR, mild TR. At this time, recommend proceeding with with an exercise stress echocardiogram for further risk stratification. Would recommend transitioning him from simvastatin to atorvastatin, for goal LDL of less than 100 and ideally less than 70 given his family history. -Patient's spouse relays concerns that he has had multiple high blood pressure measurements at home when she takes his blood pressure. She questions if it is time for him to be unable medication for this. The blood pressure response to exercise will be assessed further recommendations will be forthcoming. -Patient already has plans for an outpatient cardiology visit with [facility] Next month. History of Present Illness Attending Physician: Theo Espinosa MD History of Present Illness James Martinez is a 71 year old male seen in cardiology consultation per the request of Dr. Spencer for the evaluation of mild elevation in high-sensitivity troponin, and epigastric discomfort. The patient actually has 2 residences, one in [facility] outside of [place] and one locally. He describes himself as being physically active at baseline. He performs chores around his 2 properties 1 of which he cares for 17 acres and the other of which he cares for 5 acres. Yesterday he had a stressful day. He is in conflict with his neighbor with regards to building a driveway and the patient was actually visiting an state's attorney to discuss this dispute yesterday. After the meeting with the state's attorney the patient developed symptoms of a headache at the crown of his head as well as abdominal pain and epigastric discomfort. He had initially presented to a local urgent care center and was referred to the emergency room. Initial blood pressure on arrival here was 129/64, with measurements as high as 176/94 overnight last night. Most recent measurement 132/87. The patient is not on any medications for his blood pressure at baseline but does note episodic high blood pressures sometimes with times of emotional distress, but also he has had other high readings. The patient denies any current chest epigastric or abdominal discomfort this morning. A CTA of the chest revealed no evidence of pulmonary embolism, interstitial changes in the lungs noted. CT angiogram of the brain was negative for acute findings. 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 His mother had a myocardial infarction at the age of 72 and subsequently at the age of 90 Sister with IN, stent at the age of 65 Allergies Allergy/AdvReac Type Severity Reaction Status Date / Time pollen extracts Allergy Intermediate ITCHY Verified 12/07/21 17:04 EYES, SNEEZING NSAIDS (Non-Steroidal AdvReac Severe BLEEDING Verified 12/07/21 17:04 Anti-Inflamma COLITIS Home Medications Medication Instructions Recorded Confirmed Type Medical Marijuana 1 dose inhalation DAILY 12/07/21 12/07/21 History albuterol sulfate 2.5 mg/3 mL 2.5 mg inhalation Q4H PRN Wheezing 12/07/21 12/07/21 History (0.083 %) solution for nebulization albuterol sulfate 90 mcg/actuation 2 puff inhalation BID 12/07/21 12/07/21 History aerosol inhaler alprazolam 0.5 mg tablet (Xanax) 0.5 mg PO DAILY PRN Anxiety 12/07/21 12/07/21 History biotin 5 mg tablet 5 mg PO DAILY 12/07/21 12/07/21 History budesonide-formoterol HFA 160 2 puff inhalation BID 12/07/21 12/07/21 History mcg-4.5 mcg/actuation aerosol inhaler (Symbicort) lycopene 10 mg capsule 10 mg PO DAILY 12/07/21 12/07/21 History lysine 1,000 mg tablet 1,000 mg PO DAILY 12/07/21 12/07/21 History benji extract 500 mg capsule 500 mg PO DIRECTED 12/07/21 12/07/21 History nitroglycerin 0.4 mg sublingual 0.4 mg sublingual DIRECTED PRN 12/07/21 12/07/21 History tablet (Nitrostat) Chest Pain prasterone (dhea) 50 mg capsule 50 mg PO DAILY 12/07/21 12/07/21 History (DHEA) prednisone 20 mg tablet 20 mg PO DAILY PRN RESCUE KIT 12/07/21 12/07/21 History simvastatin 10 mg tablet 10 mg PO HS 12/07/21 12/07/21 History sodium chloride 0.65 % nasal spray 2 spray intranasal QID PRN NASAL 12/07/21 12/07/21 History aerosol (Saline Nasal) DRYNESS yohimbe bark 500 mg capsule 0 mg PO DIRECTED 12/07/21 12/07/21 History zolpidem 10 mg tablet (Ambien) 10 mg PO HS PRN Sleep 12/07/21 12/07/21 History Patient History Medical History Asthma Atherosclerosis of aortic arch Gallstones GI bleed due to NSAIDs History of tobacco use Surgical History H/O resection of small bowel S/P rotator cuff repair Family History Other Heart disease Hypertension Social History Smoking Status: Former smoker Tobacco Type: Cigarettes Cigarettes Per Day: H/o 1.5 ppd for 22 years; Second Hand Exposure: No; Do You Dip or Chew Tobacco: No; Tobacco Cessation Education Requested by Patient: No Hx Alcohol Use: Yes Alcohol type: wine Hx Substance Use: Yes Prescribed Medications: Marijuana Last Used Substance: Days (ago) Substance Use Type Other:: with prescription Preferred Language: Frisian Communication Ability: Effective Gps Field Data Collector Required: No Beliefs That Will Affect Care: None Current Living Situation: Spouse Other Information That Helps Us Care for You: No Feels Safe at Home: Yes Safety Concerns: Feels Safe At This Time Assistive Devices: Hearing Aid - Left and Hearing Aid - Right Review of Systems Review of Systems: All systems reviewed & are unremarkable except as noted in HPI & below Physical Exam Constitutional: WD/WN, vitals as above Respiratory: normal respiratory effort, lungs clear to auscultation Cardiovascular: Rate/Rhythm: regular rate and regular rhythm Heart Sounds: + murmur (1/6 SM ) Extremities: no edema Gastrointestinal (Abdomen): normal bowel sounds, soft, nontender, no hepatosplenomegaly Neurologic: PERRL, EOMI, accommodation nl, no face palsy, no dysarthria Results & Data ([facility]) Vital Signs (Past 12 Hours) Vital Signs Temp Pulse Pulse Resp BP Pulse Ox O2 Del Method 12/08/21 07:13 58 L 14 98 Room Air 12/08/21 07:06 36.7 C 58 L 19 132/87 96 Room Air 12/08/21 04:27 36.9 C 55 L 20 136/83 96 Room Air 12/07/21 22:16 77 12/07/21 22:03 72 12/07/21 23:00 128/63 12/07/21 22:51 36.4 C L 74 16 172/96 H 94 12/07/21 22:11 36.8 C 66 18 147/94 H 97 Room Air FiO2 12/08/21 07:13 21 12/08/21 07:06 12/08/21 04:27 12/07/21 22:16 12/07/21 22:03 12/07/21 23:00 12/07/21 22:51 12/07/21 22:11 Laboratory Results Cardiac Enzymes 12/07/21 12/07/21 12/07/21 Range/Units 13:30 17:35 23:32 AST 51 H (13-39) U/L Troponin I High Sens 38.2 H 120.7 H* D 93.8 H* D (0-20) pg/ml 12/08/21 Range/Units 05:54 AST (13-39) U/L Troponin I High Sens 54.1 H* D (0-20) pg/ml Coagulation 12/07/21 12/07/21 Range/Units 13:30 15:44 PT Cancelled 11.3 APTT Cancelled 25.5 Lipids 12/08/21 Range/Units 05:54 Triglycerides 123 (0-150) mg/dl Cholesterol 179 (0-200) mg/dl HDL Cholesterol 47 mg/dl Cholesterol/HDL Ratio 3.8 (0-5) LDL cholesterol 107 CBC 12/07/21 12/08/21 Range/Units 13:30 05:54 WBC 8.51 8.64 (4.8-10.8) K/ul RBC 5.20 4.83 (4.63-6.08) M/uL Hgb 16.0 14.5 (14.0-18.0) g/dl Hct 45.6 42.2 (40.1-51.0) % Plt Count 223 213 (130-400) K/uL Neut # (Auto) 6.83 H (1.4-6.5) K/uL Lymph # (Auto) 1.16 L (1.2-3.4) K/uL Douglas # (Auto) 0.37 (0.24-0.82) K/uL Eos # (Auto) 0.08 (0-0.50) K/uL Baso # (Auto) 0.02 (0-0.2) K/uL Comprehensive Metabolic Panel 12/07/21 12/08/21 Range/Units 13:30 05:54 Sodium 139 137 (136-145) mmol/L Potassium 4.1 4.2 (3.5-5.1) mmol/L Chloride 107 106 (98-107) mmol/L Carbon Dioxide 25 25 (21-32) mmol/L BUN 23 20 (6-23) mg/dl Creatinine 1.13 1.14 (0.6-1.4) mg/dl Glucose 121 H 104 H (70-99(Fasting)) mg/dl Calcium 9.5 8.9 (8.5-10.1) mg/dl AST 51 H (13-39) U/L ALT 61 H (7-52) U/L Alkaline Phosphatase 76 (34-104) U/L Total Protein 7.2 (6.0-8.3) gm/dl Albumin 4.5 (3.4-5.0) gm/dl Intake and Output 12/07/21 12/08/21 12/08/21 22:59 06:59 14:59 Intake Total 500 / 700 200 / 700 Balance 500 / 700 200 / 700 Intake: IV 500 / 500 Sodium Chloride 0.9% 1000ML 500 500 / 500 ml @ 999 mls/hr IV .Q31M ONE Rx#:[id number] Oral 200 / 200 Other: Weight 81.4 kg 81.5 kg Weight Measurement Method [facility] in [facility]
[2021-12-08] MEDS ORDERED: amLODIPine BESYLATE 5 MG TAB PO ONE (11:28)
--- NOTE | 2021-12-08 11:31 | Communication Note ---
Date of Service: December 08, 2021 Nonischemic response to stress echocardiogram noted. Patient exercised just under 6 minutes. Test was terminated due to fatigue and appropriate degree of shortness of breath. No symptoms suggestive angina were reported. Blood pressure response to exercise was exaggerated. Headache noted in the post exercise recovery interval. Plan: Transfer back to PCU. Proceed with lunch. Start amlodipine 5 mg daily, first dose now. Sinus patient feels good after his afternoon meal, with resolution of his headache, anticipate discharge with new prescription for amlodipine 5 mg daily, transition from simvastatin to atorvastatin 10 mg. Patient would like to keep his upcoming appointment to establish with cardiology with [facility] in [place]. Since he lives part-time locally , will also arrange post hospital visit with me.
--- NOTE | 2021-12-08 15:09 | Discharge Summary ---
Date of Service December 08, 2021 Admission HPI Per Admitting Provider This is a 71-year-old male with PMH of asthma, chronic back pain with neuropathy, daily marijuana use, atherosclerosis of aortic arch and other medical problems listed below and other medical problems listed below who presents to the ED from convenient care with chest pain and elevated blood pressure. Pain started around 11 AM today following meeting with his supervisor winding department regarding dispute with neighbor. Was admittedly feeling worked up and anxious at this time and describes sudden onset pain in lower chest/epigastric area that was a 9/10 sharp and constant pain that is nonradiating with associated diaphoresis, severe headache and nausea. No dizziness, SOB. No near syncope. Per chart review, states that patient has had untreated hypertension with systolic blood pressure over 200 intermittently for at least 3-6 months. Patient states he does not believe he needs medications because when he is able to relax and do mindfulness exercises, his blood pressure returns to a normal range. Does have home BP cuffs. Was given nitro and 324 mg aspirin at convenient care and was brought to ED via EMS for further evaluation. In ED, the patient's blood pressure improved to 129/64, heart rate is in the 50s, patient is alert and saturating well on room air.Chest pain and headache resolved after ntg. Abdominal discomfort in lower epigastrium present but mild 2/10 compared to initial pain. EKG with sinus bradycardia and evidence of previous septal infarct. Has not smoked a cigar in over 6 months. Daily marijuana use for neuropathic chronic back pain. No fever, chills, lightheadedness, N/V, dysuria, diarrhea or constipation. States over the past few months he does have episodes of left sided chest pain that radiates up to jaw but they resolve on their own. Denies episode similar to that today as this was lower chest/epigastric area. Admission Exam Per Admitting Provider General Appearance:WD/WN, vitals as above, NAD, sitting up in bed, pleasant, conversing easily Head: normocephalic, atraumatic Eyes:normal inspection, PERRL, conjunctivae normal, anicteric sclerae ENT: external ear and nose normal, oropharynx normal Neck: normal visual inspection, trachea midline, no thyromegaly Respiratory:normal respiratory effort, lungs clear to auscultation, no wheeze, rales, rhonchi. No accessory muscle use Cardiovascular: bradycardia, regular rhythm, no murmur, normal peripheral pulses, no BLE edema. Vessels: no JVD Chest: normal inspection of chest Abdomen/GI: normal bowel sounds, soft, TTP across epigastrium, no guarding, no hepatosplenomegaly Extremities/Musculoskeletal: no cyanosis or clubbing, extremities motor strength 5/5 Neurologic: PERRL, EOMI, accommodation nl, no face palsy, no dysarthria, CN's II-XI intact bilaterally and moves all extremities Psychiatric:A+Ox3, euthymic affect Skin: no rashes, normal color, warm/dry Principal Diagnosis (1) Hypertensive urgency: (2) Elevated troponin: (3) Epigastric pain: (4) Gallstones: (5) GI bleed due to NSAIDs: (6) Asthma: Discharge Exam General- No acute distress Head- atraumatic Eyes- PERRL, EOMI, ENT- oropharynx clear Neck- supple, no JVD Lungs- clear to auscultation Heart- regular rhythm; no murmur Abdomen- normal bowel sounds, soft, nontender Extremities- no calf tenderness Neuro- alert, oriented x 3; PERRL, EOMI; no facial palsy; no dysarthria Skin- warm & dry Discharge Data Allergies Allergy/AdvReac Type Severity Reaction Status Date / Time pollen extracts Allergy Intermediate ITCHY Verified 12/07/21 17:04 EYES, SNEEZING NSAIDS (Non-Steroidal AdvReac Severe BLEEDING Verified 12/07/21 17:04 Anti-Inflamma COLITIS Consultations 12/07/21 19:20 ED Decision to Admit Stat 12/07/21 21:26 Consult Cardiology Routine Ordered Studies 12/07/21 15:39 CT angio head wo/w Stat 12/07/21 15:40 CT Abd and Pelvis [CT abd pelvis IV con only] Stat CT angio chest PE protocol Stat 12/08/21 US liver Routine Laboratory Results WBC 8.64 K/ul (4.8-10.8) 12/08/21 05:54 RBC 4.83 M/uL (4.63-6.08) 12/08/21 05:54 Hgb 14.5 g/dl (14.0-18.0) 12/08/21 05:54 Hct 42.2 % (40.1-51.0) 12/08/21 05:54 MCV 87.4 fL (80.0-100.0) 12/08/21 05:54 MCH 30.0 pg (25.0-34.0) 12/08/21 05:54 MCHC 34.4 g/dL (32.0-36.0) 12/08/21 05:54 RDW Std Deviation 45.5 fL (36.4-46.3) 12/08/21 05:54 RDW Coeff of Celena 14.3 % (11.5-14.5) 12/08/21 05:54 Plt Count 213 K/uL (130-400) 12/08/21 05:54 MPV 9.9 fL (9.4-12.4) 12/08/21 05:54 Immature Gran % (Auto) 0.6 % 12/07/21 13:30 Neut % (Auto) 80.4 % 12/07/21 13:30 Lymph % (Auto) 13.6 % 12/07/21 13:30 [place] % (Auto) 4.3 % 12/07/21 13:30 Eos % (Auto) 0.9 % 12/07/21 13:30 Baso % (Auto) 0.2 % 12/07/21 13:30 Neut # (Auto) 6.83 K/uL (1.4-6.5) H 12/07/21 13:30 Lymph # (Auto) 1.16 K/uL (1.2-3.4) L 12/07/21 13:30 [place] # (Auto) 0.37 K/uL (0.24-0.82) 12/07/21 13:30 Eos # (Auto) 0.08 K/uL (0-0.50) 12/07/21 13:30 Baso # (Auto) 0.02 K/uL (0-0.2) 12/07/21 13:30 Immature Gran # (Auto) 0.05 K/uL (0.00-0.02) H 12/07/21 13:30 PT 11.3 Seconds (9.0-12.0) 12/07/21 15:44 INR 1.1 (0.9-1.1) 12/07/21 15:44 APTT 25.5 Seconds (21.0-31.0) 12/07/21 15:44 PTT Ratio 0.9 12/07/21 15:44 Sodium 137 mmol/L (136-145) 12/08/21 05:54 Potassium 4.2 mmol/L (3.5-5.1) 12/08/21 05:54 Chloride 106 mmol/L (98-107) 12/08/21 05:54 Carbon Dioxide 25 mmol/L (21-32) 12/08/21 05:54 Anion Gap 6 (3-11) 12/08/21 05:54 BUN 20 mg/dl (6-23) 12/08/21 05:54 Creatinine 1.14 mg/dl (0.6-1.4) 12/08/21 05:54 Est Cr Clr Drug Dosing 57.7 ml/min 12/08/21 05:54 Est GFR ( Amer) 73.5 ml/min 12/08/21 05:54 Est GFR (Non-Af Amer) 63.4 ml/min 12/08/21 05:54 BUN/Creatinine Ratio 17.5 (10-20) 12/08/21 05:54 Glucose 104 mg/dl (70-99(Fasting)) H 12/08/21 05:54 Estimat Average Glucose 117 mg/dl 12/08/21 05:54 Hemoglobin A1c 5.7 % (4.5-5.6) H 12/08/21 05:54 Calcium 8.9 mg/dl (8.5-10.1) 12/08/21 05:54 Total Bilirubin 0.6 mg/dl (0.2-1.0) 12/07/21 13:30 AST 51 U/L (13-39) H 12/07/21 13:30 ALT 61 U/L (7-52) H 12/07/21 13:30 Alkaline Phosphatase 76 U/L (34-104) 12/07/21 13:30 Troponin I High Sens 54.1 pg/ml (0-20) H* D 12/08/21 05:54 Total Protein 7.2 gm/dl (6.0-8.3) 12/07/21 13:30 Albumin 4.5 gm/dl (3.4-5.0) 12/07/21 13:30 Globulin 2.7 gm/dl (2.5-4.0) 12/07/21 13:30 Albumin/Globulin Ratio 1.7 (0.9-2) 12/07/21 13:30 Triglycerides 123 mg/dl (0-150) 12/08/21 05:54 Cholesterol 179 mg/dl (0-200) 12/08/21 05:54 LDL Cholesterol, Calc 107 mg/dl 12/08/21 05:54 VLDL Cholesterol, Calc 25 mg/dl (0-30) 12/08/21 05:54 HDL Cholesterol 47 mg/dl 12/08/21 05:54 Cholesterol/HDL Ratio 3.8 (0-5) 12/08/21 05:54 Lipase 56 U/L (11-82) 12/07/21 17:35 Urine Color Yellow 12/08/21 04:20 Urine Appearance Clear (Clear) 12/08/21 04:20 Urine pH 6.0 (4.5-7.5) 12/08/21 04:20 Ur Specific [place] 1.022 (1.000-1.030) 12/08/21 04:20 Urine Protein Negative (Negative) 12/08/21 04:20 Urine Glucose (UA) Trace (Negative) H 12/08/21 04:20 Urine Ketones Negative (Negative) 12/08/21 04:20 Urine Blood Negative (Negative) 12/08/21 04:20 Urine Nitrite Negative (Negative) 12/08/21 04:20 Urine Bilirubin Negative (Negative) 12/08/21 04:20 Urine Urobilinogen Negative (Negative) 12/08/21 04:20 Ur Leukocyte Esterase Negative (Negative) 12/08/21 04:20 SARS-CoV-2, RNA, NAAT NEGATIVE (NEGATIVE) 12/07/21 19:24 Impressions Head CTA 12/07/21 15:39 CT ANGIOGRAM OF THE BRAIN COMBO CLINICAL HISTORY: Headache. COMPARISON STUDY: No priors. TECHNIQUE: Unenhanced axial CT scan of the brain is performed. Subsequently, following the IV administration of 100 cc of Optiray 320, CT angiogram of the brain was performed from the skull base to the vertex. Images are reviewed in the axial, sagittal, and coronal planes. 3-D MIPS images are created and assessed. IV contrast was administered without complication. A dose lowering technique was utilized adhering to the principles of ALARA. FINDINGS: Brain parenchyma: There is age-related involutional change noting minimal microangiopathic disease. There is no hemorrhage, mass effect, or evidence of acute territorial ischemia by CT criteria. There is no evidence of enhancing mass lesion on the angiogram phase images. No extra-axial fluid collection is seen. Espino-white matter differentiation is preserved. Ventricles, sulci, and cisterns: Prominent secondary to involutional change. CT angiogram of the brain: There is mild atherosclerotic calcification of the cavernous carotid arteries. The internal carotid arteries are widely patent, as are the anterior and middle cerebral arteries. The vertebrobasilar system and posterior cerebral arteries are widely patent. The vertebral arteries are codominant. There is no aneurysm, high-grade stenosis, or focal vessel cutoff identified throughout the intracranial circulation. Dural sinuses: Clear as visualized. Orbits: The bony orbits are intact. The orbital contents are normal as visualized noting bilateral ocular lens implants. Sinuses and mastoids: The visualized paranasal sinuses are clear. The mastoid air cells are well pneumatized. Calvarium: Unremarkable. IMPRESSION: 1. There is no hemorrhage, mass effect, or evidence of acute territorial ischemia by CT criteria. 2. Unremarkable CT angiogram of the brain. ACT 112: Negative or not required by law. Electronically signed by: Efe Haji M.D. 12/07/2021 4:38 PM Abdomen/Pelvis CT 12/07/21 15:40 CT SCAN OF THE ABDOMEN AND PELVIS WITH IV CONTRAST CLINICAL HISTORY: Acute onset abdominal pain. COMPARISON STUDY: No priors. TECHNIQUE: Following the IV administration of 100 cc of Optiray 320, CT scan of the abdomen and pelvis is performed from the lung bases to the proximal femora. Images are reviewed in the axial, sagittal, and coronal planes. IV contrast was administered without complication. A dose lowering technique was utilized adhering to the principles of ALARA. CT DOSE: 2337.85 mGy.cm FINDINGS: Lung bases: The heart is normal in size and without pericardial effusion. The lung bases are clear noting dependent scarring/atelectasis. A small hiatal hernia is noted. Liver: The contrast-enhanced liver is normal in size, contour, and attenuation. There is no intrahepatic biliary ductal dilatation. The hepatic veins and portal veins are patent. Gallbladder: There are calcified gallstones with no CT evidence of acute cholecystitis. Spleen: Normal in size and attenuation. Pancreas: Unremarkable. Adrenal glands: Unremarkable. Kidneys: The contrast enhanced kidneys demonstrate mild cortical atrophy and are without hydronephrosis. The kidneys enhance symmetrically. A 2 cm cyst is seen on the right. Additional subcentimeter cortical hypodensities also likely represent cysts but are too small for definitive characterization. Abdominal vasculature: The abdominal aorta is normal in course and caliber noting mild atherosclerotic calcification. Bowel: There is postoperative change from rectosigmoid resection with colocolic anastomosis. No bowel obstruction is seen. There is moderate diverticulosis of the remaining colon without CT evidence of acute diverticulitis. There is mild colonic fecal retention. The appendix is well-visualized and normal. Peritoneum: There is no intraperitoneal free air or abdominal ascites. Lymphadenopathy: None. Pelvic viscera: The bladder is decompressed and appears markedly thick walled with mucosal hyperemia. There is surrounding infiltration. There is a tiny calcification within the bladder lumen or bladder wall seen on image #[id number]. The prostate gland is diminutive and heterogeneous. There are bilateral fat- containing inguinal hernias. Skeletal structures: The skeletal structures are osteopenic. There is lumbosacral spondylosis with evidence of L4-L5 spinal fusion. No lytic or blastic lesions are seen. IMPRESSION: 1. Question cystitis. Correlate with clinical findings and urinalysis. 2. Cholelithiasis without CT evidence of acute cholecystitis. 3. Colonic diverticulosis without CT evidence of acute diverticulitis. 4. Additional findings as above. ACT 112: Negative or not required by law. Electronically signed by: Efe Haji M.D. 12/07/2021 4:45 PM Chest CTA 12/07/21 15:40 CHEST CTA for PULMONARY ARTERIES CT DOSE: HISTORY: Upper chest pain. Assess for pulmonary embolus. TECHNIQUE: Multiaxial CT images of the chest were performed following the intravenous administration of contrast to evaluate the pulmonary arteries. Maximal intensity projection images were also obtained. A dose lowering technique was utilized adhering to the principles of ALARA. COMPARISON STUDY: None. FINDINGS: Normal caliber thoracic aorta with no evidence for a dissection. The heart is normal in size. No pleural or pericardial effusions. Mild circumferential thickening of the distal esophagus. Retrograde opacification of the hepatic veins. Cholelithiasis is noted. This is better appreciated on the same day abdomen and pelvis CT. No mediastinal or hilar lymphadenopathy. The thyroid gland enhances normally. No filling defects within the pulmonary arteries to suggest a pulmonary embolus. No fractures within the visualized osseous structures. No pneumothorax. The central airways are patent. Small groundglass densities within the lower lobes posteriorly favor mild dependent change. There is also mild interstitial thickening within the lungs which is likely chronic. No evidence for pulmonary edema. No focal lung consolidations to suggest pneumonia. Mild central bronchial wall thickening. IMPRESSION: 1. No evidence for a pulmonary embolus. 2. Mild chronic interstitial thickening mild central bronchial wall thickening. No focal lung consolidations to suggest a pneumonia. . 3. Cholelithiasis. ACT 112: Negative or not required by law. Electronically signed by: Barry Garza M.D. 12/07/2021 4:45 PM Liver Ultrasound 12/08/21 00:00 ULTRASOUND RIGHT UPPER QUADRANT ABDOMEN CLINICAL HISTORY: Epigastric abdominal pain. Elevated hepatic transaminases. COMPARISON STUDY: Abdominal CT dated 12/07/2021. TECHNIQUE: Real-time, grayscale, and color flow sonography of the right upper quadrant of the abdomen was performed. Images are reviewed in the transverse and longitudinal planes. FINDINGS: Liver: The liver is normal in size. Echotexture is heterogeneously increased. There is no intrahepatic biliary ductal dilatation. The main portal vein is patent. Gallbladder: There are shadowing calcified gallstones. There is no gallbladder wall thickening or pericholecystic fluid. A sonographic Weems's sign is reportedly absent. The common bile duct measures up to 0.5 cm in diameter. Pancreas: Visualized portions of the pancreatic head and body are normal in appearance. Right kidney: Survey images of the right kidney demonstrate normal size and echotexture. There is no hydronephrosis. Ascites: None. IMPRESSION: 1. Cholelithiasis without sonographic evidence of acute cholecystitis. 2. Increased hepatic echotexture suggests steatosis. ACT 112: Negative or not required by law. Electronically signed by: Efe Haji M.D. 12/08/2021 9:26 AM Hospital Course (1) Hypertensive urgency: (2) Elevated troponin: (3) Epigastric pain: (4) Gallstones: (5) GI bleed due to NSAIDs: (6) Asthma: 71-year-old male with PMH of asthma, chronic back pain with neuropathy, daily marijuana use, atherosclerosis of aortic arch who presents to the ED from convenient care with chest pain and elevated blood pressure. Epigastric pain Elevated troponin Troponin on admission showed high-sensitivity troponin had been 38 on presentation, and trended to 120, 93, and most recently 54. EKG showed no ischemic changes ECHO showed no regional wall motion abnormalities 55-60% Cardiology on board S/P stress echo is negative for inducible ischemia. Symptoms suggestive angina were induced Case discussed with cardiology that recommended to continue amlodipine 5mg daily on discharge and changed simvastatin to atorvastatin Follow up with cardiology outpatient Ok from cardiology standpoint to discharge home Hypertensive Urgency Elevated BP 200/100 at the urgent care Continue amlodipine 5 mg Continue monitor BP Asthma Stable. Continue home Symbicort, albuterol inhalers DVT Ppx: SQ heparin Code status: FULL Plan By CMS guidelines, a determination that the admission or continued stay is not medically necessary has been made by a member of the UR committee and a physician for this hospital stay, therefore a Code 44 will be completed and the Inpatient admission will be changed to outpatient. 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 Call non-emergency contact if: you have any medication questions Follow-up/Referrals: PCP,NO [Primary Care Provider] - Diet: Heart Healthy Addtl Attending Provider Instructions: Follow up with your primary care provider in 1 week Follow up with your cardiology Continue monitor your blood pressure and bring your blood pressure log at your next appointment with provider Seek medical attention if your symptoms reoccurs Fall precaution Simvastatin changed to Atorvastatin Amlodipine added for your blood pressure management Pending Studies at Discharge: No Stand-Alone Forms: My [email or web address], Smoking Cessation Medications and DC Order Prescriptions: New atorvastatin 10 mg Tablet 10 mg PO HS Qty: 30 0RF amlodipine [Norvasc] 5 mg Tablet 5 mg PO QAM Qty: 30 0RF Continued albuterol sulfate 2.5 mg /3 mL (0.083 %) Solution For Nebulization 2.5 mg INHALATION Q4H PRN (Reason: Wheezing) prednisone 20 mg Tablet 20 mg PO DAILY PRN (Reason: RESCUE KIT) Rx Instructions: PER GMG-TAKES 20 MG X 5 DAYS RESCUE KIT. lysine 1,000 mg Tablet 1,000 mg PO DAILY DHEA 50 mg Capsule 50 mg PO DAILY alprazolam [Xanax] 0.5 mg Tablet 0.5 mg PO DAILY PRN (Reason: Anxiety) yohimbe bark 500 mg Capsule 0 mg PO DIRECTED Rx Instructions: PER GMG-TAKES 25MG TWICE A MONTH. nitroglycerin [Nitrostat] 0.4 mg Tablet, Sublingual 0.4 mg sublingual DIRECTED PRN (Reason: Chest Pain) zolpidem [Ambien] 10 mg Tablet 10 mg PO HS PRN (Reason: Sleep) albuterol sulfate 90 mcg/actuation Hfa Aerosol Inhaler 2 puff INHALATION BID lycopene 10 mg Capsule 10 mg PO DAILY Rx Instructions: administer after a meal Saline Nasal 0.65 % Aerosol,[place] 2 spray INTRANASAL QID PRN (Reason: NASAL DRYNESS) biotin 5 mg Tablet 5 mg PO DAILY budesonide-formoterol [Symbicort] 160-4.5 mcg/actuation Hfa Aerosol Inhaler 2 puff INHALATION BID benji extract 500 mg Capsule 500 mg PO DIRECTED Rx Instructions: PER GMG-TAKES ABOUT 10 TIMES A MONTH. Medical Marijuana 1 dose inhalation DAILY Rx Instructions: VAPS BUDS. Discontinued simvastatin 10 mg Tablet 10 mg PO HS Discharge Orders: Discharge Order (Routine); Ordered 12/08/21 Ordered By: Theo Espinosa Admission Data Admit Date/Time: 12/07/21 20:31 Attending Provider: Theo Espinosa Admit Provider: Byron Restrepo Primary Care Provider: PCP,NO Other Providers: Byron Restrepo ; Sheyla Pollock ; David Wong Other Interventions: Discharge Summary Assessment (RN) Last Done: 12/08/21 15:01
--- NOTE | 2021-12-08 16:07 | Communication Note ---
Date of Service: December 08, 2021 By CMS guidelines, a determination that the admission or continued stay is not medically necessary has been made by a member of the Utilization Review co mmittee and a physician for this hospital stay. Therefore, a Code 44 will be completed and the inpatient admission will be changed to outpatient. DO NGOZI [place] Physician
[2021-12-08] MEDS ORDERED: ATORVASTATIN 10 MG TAB PO SCH (21:00)
[2021-12-09] MEDS ORDERED: amLODIPine BESYLATE 5 MG TAB PO SCH (09:00)
== END 2021-12-08 16:11 | disposition home or self-care (01) ==
LOC: ED 12:41 → 2S 20:31 → SUATTDRO 20:31 → INTOOBSV 20:31 → 2S 21:02
DX: I16.0 Hypertensive urgency; Z87.891 Personal history of nicotine dependence; I10 Essential (primary) hypertension; R79.89 Other specified abnormal findings of blood chemistry; R51.9 Headache, unspecified; K80.20 Calculus of gallbladder without cholecystitis without obstruction; J45.909 Unspecified asthma, uncomplicated; K92.2 Gastrointestinal hemorrhage, unspecified; Z79.52 Long term (current) use of systemic steroids; Z79.899 Other long term (current) drug therapy; R10.13 Epigastric pain; T39.395A Adverse effect of other nonsteroidal anti-inflammatory drugs [NSAID], initial encounter